=== PATIENT | female | born 1955 | race Caucasian/White ===

== ENCOUNTER 2018-02-15 20:55 | Inpatient (IN) | payer OTHER ==
--- NOTE | 2018-02-15 21:32 | RAD ---
RADIOGRAPH CHEST 2 VIEWS: 02/15/18 HISTORY: 62-year-old female with acute chest pain and hypertension. FINDINGS: There is no air space density, pulmonary edema, pleural effusion, or pneumothorax. The cardiac size i s at the upper limits of normal, but there is no pulmonary vascular engorgement. IMPRESSION: No acute pulmonary findings. niurka garcia POS: [facility]
[2018-02-15 22:57] LABS: #Eosinphils 0.1 thou/uL (0.0-0.7); #Lymphocytes 1.8 thou/uL (1.20-3.40); #Monocytes 0.6 thou/uL (0.11-0.59); #Neutrophils 4.6 thou/uL (1.40-6.50); %Basophils 0.6 % (0.0-1.0); %Eosinophils 0.9 % (0.0-10.0); %Neutrophils 64.6 % (42.0-75.0); Hemoglobin 12.9 g/dL (12.0-16.0); Mean Corpuscular HGB CONC 35.6 g/dL (32.0-36.0); Mean Corpuscular Hemoglobin 30.3 pg (27.0-31.0); Mean Corpuscular Volume 85.1 fL (78.0-98.0); Mean Platelet Volume 6.9 fL (7.4-10.4); Platelet Count 244 thou/uL (130-400); RBC Distribution Width 11.9 % (11.5-14.5); Red Blood Cell (RBC) Count 4.27 mill/uL (4.20-5.40); White Blood Cell (WBC) Count 7.1 thou/uL (4.8-10.8)
[2018-02-15 23:16] LABS: ALT (SGPT) 10 U/L (8-55); AST (SGOT) 22 U/L (5-34); Albumin 3.8 g/dL (3.5-5.0); Alkaline Phosphatase 28 U/L (40-150); Anion Gap 12 mmol/L (10-20); BUN (Urea Nitrogen) 11 mg/dL (9.8-20.1); Bilirubin, Total 0.7 mg/dL (0.2-1.2); Calc. Creatinine Clearance 0 mL/min (70-130); Carbon Dioxide 21 mmol/L (22-29); Chloride 94 mmol/L (98-107); Estimated GFR-MDRD 76; Globulin 2.5 g/dL (2.4-3.5); Glucose 108 mg/dL (70-105); Potassium 3.3 mmol/L (3.5-5.1); Protein, Total 6.3 g/dL (6.0-8.3); Sodium 124 mmol/L (136-145)
[2018-02-15 23:21] LABS: Troponin I Less than 0.010 ng/mL (< 0.028)
[2018-02-16] MEDS ORDERED: Ondansetron HCl/PF 4 MG/2 ML Vial IVP PRN (01:23)
[2018-02-16] MEDS ORDERED: Ondansetron ODT 4 MG TAB SL PRN (01:23)
[2018-02-16 01:37] VITALS: BMI 31.1
[2018-02-16] MEDS ORDERED: Acetaminophen 325 MG TAB PO PRN (01:46)
[2018-02-16] MEDS ORDERED: Bisacodyl 5 MG TAB PO PRN (01:46)
[2018-02-16] MEDS ORDERED: Nitroglycerin 0.4 MG TAB (25 Tab Bottle) PO PRN (01:46)
[2018-02-16] MEDS ORDERED: Propranolol HCl 20 MG TAB PO PRN (01:49)
[2018-02-16 02:08] LABS: Troponin I 0.051 ng/mL (< 0.028)
[2018-02-16] MEDS ORDERED: Aspirin 325 MG TAB PO SCH ×2 (02:15→08:00)
[2018-02-16] MEDS ORDERED: Potassium Chloride 20 MEQ TAB PO SCH (02:15)
[2018-02-16 02:22] LABS: #Eosinphils 0.1 thou/uL (0.0-0.7); #Lymphocytes 1.9 thou/uL (1.20-3.40); #Monocytes 0.6 thou/uL (0.11-0.59); #Neutrophils 4.8 thou/uL (1.40-6.50); %Basophils 0.5 % (0.0-1.0); %Eosinophils 1.3 % (0.0-10.0); %Lymphocytes 24.9 % (21.0-51.0); %Monocytes 8.3 % (0.0-10.0); Hemoglobin 13.3 g/dL (12.0-16.0); Mean Corpuscular HGB CONC 35.2 g/dL (32.0-36.0); Mean Corpuscular Hemoglobin 30.3 pg (27.0-31.0); Mean Platelet Volume 7.5 fL (7.4-10.4); Platelet Count 222 thou/uL (130-400); White Blood Cell (WBC) Count 7.4 thou/uL (4.8-10.8)
[2018-02-16 02:50] LABS: Thyroid Stimulating Hormone 1.3198 uIU/mL (0.35-4.94)
--- NOTE | 2018-02-16 02:58 | HP ---
PRIMARY CARE PHYSICIAN: [facility]. CHIEF COMPLAINT: Chest pain. HISTORY OF PRESENT ILLNESS: Ms. Liriano is a pleasant 62-year-old lady who was seen at [facility] on 02/16/2018. 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 She returne d home around 5:00 p.m. Around 5:30 p.m., she checked her blood pressure and found that it was eleva juan carlos. She laid down for a few minutes and recheck her blood pressure. It continued to be elevated. She then started feeling chest pain. She describes it as a sensation of tightness in the retrosterna l area, nonradiating, constant, 3/10 at its worst, accompanied by shortness of breath, nausea, and li ghtheadedness. She reports that she started Prozac 4 days ago. Otherwise, there has been no recent change to her me dications. She came to the emergency room because of ongoing chest discomfort. Her chest pain resol nick while she was in the emergency room. REVIEW OF SYSTEMS: All other systems reviewed and found to be negative. PAST MEDICAL HISTORY: Hypertension. PAST SURGICAL HISTORY: Cholecystectomy. PSYCHIATRIC HISTORY: Anxiety and posttraumatic stress disorder. SOCIAL HISTORY: Patient denies tobacco use, alcohol use, or recreational drug use. FAMILY HISTORY: She reports myocardial infarction at an early age in several family members, includi ng her mother who had myocardial infarction at age 45. ALLERGIES: No known drug allergies. CURRENT MEDICATIONS: Eszopiclone 3 mg at bedtime, melatonin 10 mg at bedtime, fluoxetine 20 mg daily , lisinopril 10 mg daily, propranolol 25 mg at bedtime as needed. PHYSICAL EXAMINATION: GENERAL: Ms. Liriano is awake and alert, not in acute distress. She is obese, with a BMI of 31.2. VITAL SIGNS: Blood pressure is 146/82, pulse is 58, she is breathing at rate of 16, and saturating 9 6% on room air. She is afebrile. EYES: No scleral icterus, no conjunctival pallor. ENT: Moist mucosal membranes, no oropharyngeal erythema or exudates. NECK: Supple, nontender, normal range of movement. Trachea is midline. RESPIRATORY: Accessory muscles of breathing are not active. Chest wall movements are symmetric bila terally. Lungs are clear to auscultation without wheeze, rhonchi or crepitations. CARDIOVASCULAR: S1 and S2 are heard, regular. Peripheral pulses palpable. No carotid bruit, no per icardial rub. ABDOMEN: Soft, nontender, bowel sounds heard, no hepatomegaly, no splenomegaly. NEUROLOGIC: Cranial nerves II-XII intact. Deep tendon reflexes are 2+. MUSCULOSKELETAL: Power is 5/5 in all 4 extremities, normal range of movement at all major extremity joints. SKIN: No rashes or subcutaneous nodules. LYMPHATIC: No cervical lymphadenopathy. PSYCHIATRIC: Normal mood, normal affect, patient is oriented to person, place, and time. LABORATORY DATA: Ms. Liriano's labs and investigations were reviewed. I reviewed her electrocardiogram , which was normal sinus rhythm, no ST changes to suggest an acute coronary syndrome. I also reviewe d her chest x-ray, which does not show any pulmonary infiltrates. She has an unremarkable CBC, decre ased sodium of 124, decreased potassium of 3.3, normal anion gap, normal creatinine, normal troponin I, and an unremarkable liver profile. ASSESSMENT AND PLAN: Ms. Liriano is a pleasant 62-year-old lady who was seen at [facility] on 02/16/2018. Her problem list includes: 1. Chest pain: Etiology unclear at this time. Troponin I is normal. She will be admitted for pablo toring on telemetry, repeat troponin checked and stress test. 2. Hyponatremia: Etiology unclear. Patient reports drinking a lot of water. We will start oral fl uid restriction to less than 1500 mL q.24 hours and check serum osmolality, urine osmolality, urine e lectrolytes, and creatinine. We will also check TSH. 3. Hypokalemia: Replace potassium and recheck electrolytes. 4. Hypertension: Continue home medications, monitor vital signs and titrate antihypertensives as ne eded. Many thanks for allowing me to participate in your patient's care. Please feel free to contact me wi th any questions or concerns. LEVEL OF RISK: High. LEVEL OF COMPLEXITY: High.
[2018-02-16 03:01] LABS: Anion Gap 13 mmol/L (10-20); BUN (Urea Nitrogen) 11 mg/dL (9.8-20.1); Calc. Creatinine Clearance 88 mL/min (70-130); Calcium 9.9 mg/dL (7.8-10.44); Carbon Dioxide 24 mmol/L (22-29); Chloride 97 mmol/L (98-107); Estimated GFR-MDRD 75; Glucose 102 mg/dL (70-105); Potassium 3.5 mmol/L (3.5-5.1); Sodium 130 mmol/L (136-145)
[2018-02-16 05:17] LABS: Potassium, Urine Less than 10.0 mmol/L; Sodium, Urine Less than 20 mmol/L (Not Available)
[2018-02-16 08:14] LABS: Anion Gap 16 mmol/L (10-20); Carbon Dioxide 18 mmol/L (22-29); Chloride 104 mmol/L (98-107); Potassium 4.5 mmol/L (3.5-5.1); Sodium 133 mmol/L (136-145)
[2018-02-16] MEDS ORDERED: Enoxaparin Sodium 40 MG/0.4 ML SYRINGE SC SCH (09:00)
[2018-02-16] MEDS ORDERED: Lisinopril 10 MG TAB PO SCH (09:00)
[2018-02-16] MEDS ORDERED: FLUoxetine HCl 20 MG CAP PO SCH (09:00)
[2018-02-16] MEDS ORDERED: ADENOSINE 60 MG/20 ML VIAL ONE (09:34)
--- NOTE | 2018-02-16 11:08 | NM ---
PERFUSION STUDY: Date: 02-16-18 History: Chest pain. Radiopharmaceutical: 32.1 mCi Technetium 99M Sestamibi, IV at stress and 10 mCi Technetium 99M Sestam ibi, IV at rest. Medications: 13.4 ml (40.3 mg) Adenosine, IV. Comparison: None available. FINDINGS: There is normal uptake and distribution of radiotracer seen throughout the left ventricular myocardiu m on both the resting and stress acquisitions. No reversible defect is identified. Quantitative shreyas sis also shows no reversible defect. The gated images show normal ventricular wall motion and wall th ickening. The calculated left ventricular ejection fraction is 85%. The transient ischemic dilatation ratio is elevated at 1.33 with normal being 1.22 and less. IMPRESSION: 1. Normal myocardial perfusion study without evidence of a reversible defect seen to suggest ischemia . 2. Elevated transient ischemic dilatation ratio of 1.3. 3. Normal LVEF of 85%. POS: [facility]
[2018-02-16 14:28] LABS: Anion Gap 12 mmol/L (10-20); Carbon Dioxide 23 mmol/L (22-29); Chloride 107 mmol/L (98-107); Potassium 4.5 mmol/L (3.5-5.1); Sodium 137 mmol/L (136-145)
[2018-02-16 17:42] VITALS: BP 140/67; TEMP 98.5
[2018-02-16] MEDS ORDERED: Zolpidem Tartrate 5 MG TAB PO PRN (21:00)
[2018-02-16] MEDS ORDERED: Melatonin 3 MG TAB PO SCH (21:00)
--- NOTE | 2018-02-17 04:10 | DIS ---
DATE OF ADMISSION: 02/15/2018 DATE OF DISCHARGE: 02/16/2018 PROCEDURES PERFORMED: Nuclear stress test, which shows normal myocardial perfusion study without evidence of a reversible defect to suggest ischemia; elevated transient ischemic dilatation ratio of 1.3; normal EF of 85%. MEDICATIONS: Reconciled at discharge. DISCONTINUED MEDICATIONS: Fluoxetine, this is due to hyponatremia with a sodium as low as 124. CONTINUED MEDICATIONS: 1. Lunesta 3 mg at bedtime. 2. Lisinopril 10 mg daily. 3. Melatonin 10 mg at night. 4. Propranolol 20 mg at night as needed. FINAL DIAGNOSES: 1. Chest pain with negative cardiac evaluation. 2. Hyponatremia, secondary to Prozac and increased water intake, resolved. 3. Hypertension. 4. Panic attacks and post traumatic stress disorder. FOLLOWUP: 1. With Dr. Soriano for evaluation of an abnormal transient ischemic dilatation ratio, in the context of patient's symptoms, to see if there is any further workup needed. 2. [facility] up [facility]an Myandb in 2 days for rechecking the sodium level as well as discussion of stress and consideration of other medications for the management of mood. HISTORY OF PRESENT ILLNESS: Ms. Liriano is a 62-year-old female with the above medical problems who presented to the emergency room after the onset of substernal chest pressure while at home and elevated blood pressures as high as 160s/100s. Patient also with shortness of breath at that time. She had a history of hypertension, and reports that it had been 10-15 year since her last cardiac evaluation. In the emergency room, patient found to have a sodium level of 124 and hospitalist called for admission due to hyponatremia as well as chest pain warranting further evaluation. HOSPITAL COURSE: Patient was fluid restricted to less than 1.5 liters per day, the Prozac was discontinued and her sodium has returned back to normal. Her urine studies were consistent with increased fluid intake as well side effect from the Prozac. It is recommended that she stay off this medication, due to the potential for recurrence of symptoms. She will monitor her thirst and avoid any excessive water intake at home. She will also be indoors at work (she has been working outside) at least until her cardiac evaluation. For the chest pain, patient was evaluated on telemetry and found to have a heart rate in the 50s in sinus rhythm; one negative troponin, and 2 indeterminate; normal nuclear stress test with the exception of an elevated transient ischemic dilatation ratio. This will be further evaluated in the outpatient setting. She has remained symptom free in the hospital, and does meet criteria for discharge to home. PHYSICAL EXAMINATION: VITAL SIGNS: On day of discharge, blood pressure 132/65, temperature 98.6, pulse 62, respirations 16, saturations 96% on room air. GENERAL: Awake, alert, responsive, in no apparent distress. LUNGS: Clear to auscultation bilateral. HEART: Normal S1, S2, regular rate and rhythm, no audible murmurs. ABDOMEN: Soft. Present bowel sounds. Nontender, nondistended. EXTREMITIES: No clubbing, cyanosis, or edema. CHAMBERS FINDINGS AND TEST RESULTS: 1. On day of discharge, sodium 137, 4.5, 107, 23, earlier today her creatinine 0.78, and glucose 102. On admission the sodium level was 124. Troponins: 0.06, 0.051, less than 0.01. 2. Liver function test: total bilirubin 0.7, AST 22, ALT 10, alkaline phosphatase 28, total protein 6.3, albumin 3.8. Urinalysis osmolality 66, creatinine less than 20, sodium less than 20, potassium less than 10. 3. TSH is 1.31. 4. D-dimer less than 0.27. 5. CBC: 7.4, 13.3, 37.8, 222. 6. Nuclear stress test as noted above, normal myocardial perfusion study without evidence of a reversible defect to suggest ischemia; elevated transient ischemic dilatation ratio 1.3; normal LVEF of 85%. 7. Chest x-ray on 02/15/2018, no acute pulmonary findings. 8. Diet: Heart healthy. ACTIVITY: No outdoor work for her job at least until her Cardiology evaluation. 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 We also discussed the return for care precautions. She demonstrated understanding, there were no further needs at the time of discharge. Total time coordinating discharge is 30 minutes. HAILE
== END 2018-02-16 17:48 | disposition home or self-care (01) | DRG 641 ==
LOC: ERS 20:55 → SURG A 23:45 → 2NO 02-16 02:49
PROVIDERS: ADMIT Internal Medicine; ATTEND Internal Medicine
DX: E87.1 Hypo-osmolality and hyponatremia (principal); I10 Essential (primary) hypertension; F41.0 Panic disorder [episodic paroxysmal anxiety]; T43.225A Adverse effect of selective serotonin reuptake inhibitors, initial encounter; E87.6 Hypokalemia; R07.9 Chest pain, unspecified; Y92.9 Unspecified place or not applicable
CPT/HCPCS: 36415; 71046; 78452; 80048; 80053; 82436; 82553; 82570; 83930; 83935; 84133; 84300; 84443; 84484; 85025; 85379; 93005; 93017; 94760; A9500; J0153; J1650

== ENCOUNTER 2018-03-21 09:54 | Outpatient (CLI) | payer OTHER | END 2018-03-21 09:55 | disposition home or self-care (01) | LOC: BICMAMMO 09:54 | PROVIDERS: ATTEND Nurse Practitioner Family | DX: Z12.31 Encounter for screening mammogram for malignant neoplasm of breast (principal) | CPT/HCPCS: 77063; 77067 ==